=== PATIENT | female | born 1930 | race Caucasian/White ===

== ENCOUNTER 2018-02-21 08:18 | Observation (INO) ==
[2018-02-21 09:59] LABS: Basophils # 0.1 10*3/uL (0.0-0.2); Basophils % 0.8 % (0.0-0.8); Eosinophils % 0.4 % (0.00-10.9); Hematocrit 39.9 VOL% (35.7-47.0); Hemoglobin 13.4 GM/DL (12.0-16.0); Immature Granulocytes % 0.6 %; Immature Granulocytes Absolute 0.04 #; Lymphocytes # 0.6 10*3/uL (1.4-4.0); Lymphocytes % 7.9 % (21.3-54.2); Mean Corpuscular HGB Conc 33.6 GM/DL (32-36); Mean Corpuscular Hemoglobin 31 PG (27-34); Mean Corpuscular Volume 93.2 FL (87-102); Mean Platelet Volume 10.9 FL (9.6-12.0); Monocytes # 0.8 10*3/uL (0.11-0.8); Monocytes % 11.1 % (1.7-12.7); Neutrophils # 5.6 10*3/uL (1.4-7.4); Neutrophils % 79.2 % (38.7-73.9); Platelet Count 160 T/CUMM (130-400); Red Blood Count 4.28 MC/CUMM (3.8-5.5); Red Cell Distribution Width 13.2 % (9.3-17.3); White Blood Count 7.1 T/CUMM (4-12)
[2018-02-21 10:05] LABS: Amorphous Crystals,Urine Occasional /HPF (Few); Apearance,Urine Slightly Hazy (Clear); Bilirubin,Urine Negative (Negative); Blood, Urine Negative (Negative); Glucose,Urine (UA) Negative (Negative); Ketones,Urine Negative (Negative); Mucus,Urine Occasional /LPF (Occasional); Nitrite,Urine Negative (Negative); Protein,Urine Negative; RBC,Urine 1 /HPF (0-4); Urine Color Yellow (Yellow); Urine Specific Gravity 1.012 (1.001-1.035); Urine Urobilinogen < 2.0 EU/DL (0.2-1.0); WBC,Urine <1 /HPF (0-6)
[2018-02-21 10:08] LABS: PT Patient Result 10.9 SECS; Partial Thromboplastin Time 22.9 SECS (0-40)
[2018-02-21 10:17] LABS: Barbiturates Screen,Urine Negative (Negative); Benzodiazepines Screen,Urine Positive (Negative); Cannabinoid Screen,Urine Negative (Negative); Opiate Screen,Urine Negative (Negative); Phencyclidine Screen,Urine Negative (Negative)
[2018-02-21 10:20] LABS: Alanine Aminotransferase 27 U/L (13-56); Albumin 3.2 G/DL (3.4-5.0); Alkaline Phosphatase 82 U/L (45-117); Aspartate Amino Transferase 26 U/L (0-37); Blood Urea Nitrogen 19 MG/DL (7-18); Calcium 9.8 MG/DL (8.5-10.1); Glucose 99 MG/DL (74-106); Osmolality,Calculated 274.8 MOS/KG (273-304); Potassium 3.7 MMOL/L (3.5-5.1); Sodium 137 MMOL/L (136-145); Total Protein 6.7 G/DL (6.4-8.3); Troponin I Only < 0.015 NG/ML (0.00-0.045)
[2018-02-21 10:42] LABS: Ammonia 33 UMOL/L (11-32)
[2018-02-21] MEDS ORDERED: hydrALAZINE 20 MG/1 ML VIAL IV STA (12:41)
[2018-02-21] MEDS ORDERED: ACETAMINOPHEN 325 MG TABLET PO PRN (13:46)
[2018-02-21] MEDS ORDERED: POLYVINYL ALCOHOL 1.4% OPH SOLN 15 ML BOTTLE BOTH EYES PRN (13:52)
[2018-02-21] MEDS ORDERED: hydrALAZINE 20 MG/1 ML VIAL IV PRN (14:21)
[2018-02-21 17:27] LABS: Troponin I Only < 0.015 NG/ML (0.00-0.045)
[2018-02-21 20:46] LABS: Troponin I Only < 0.015 NG/ML (0.00-0.045)
[2018-02-21] MEDS: CLORAZEPATE 3.75 MG TABLET PO SCH (21:35)
[2018-02-21] MEDS: CARBIDOPA/LEVODOPA 25-100 MG TABLET PO SCH (21:35)
[2018-02-21] MEDS: METOPROLOL SUCCINATE XL 50 MG TABLET PO SCH (21:35)
[2018-02-22 07:17] LABS: Basophils # 0.1 10*3/uL (0.0-0.2); Basophils % 0.6 % (0.0-0.8); Eosinophils % 0.3 % (0.00-10.9); Hematocrit 39.7 VOL% (35.7-47.0); Hemoglobin 13.2 GM/DL (12.0-16.0); Immature Granulocytes % 0.6 %; Immature Granulocytes Absolute 0.06 #; Lymphocytes # 0.9 10*3/uL (1.4-4.0); Lymphocytes % 8.6 % (21.3-54.2); Mean Corpuscular HGB Conc 33.2 GM/DL (32-36); Mean Corpuscular Hemoglobin 31 PG (27-34); Mean Corpuscular Volume 93.4 FL (87-102); Mean Platelet Volume 10.9 FL (9.6-12.0); Monocytes % 9.8 % (1.7-12.7); Neutrophils # 8.2 10*3/uL (1.4-7.4); Neutrophils % 80.1 % (38.7-73.9); Platelet Count 173 T/CUMM (130-400); Red Blood Count 4.25 MC/CUMM (3.8-5.5); Red Cell Distribution Width 13.6 % (9.3-17.3); White Blood Count 10.2 T/CUMM (4-12)
[2018-02-22 07:46] LABS: Calcium 9.2 MG/DL (8.5-10.1); Osmolality,Calculated 281.5 MOS/KG (273-304); Potassium 3.8 MMOL/L (3.5-5.1)
[2018-02-22] MEDS ORDERED: LOSARTAN/HCTZ 50-12.5 MG TABLET PO SCH (09:00)
[2018-02-22] MEDS: PANTOPRAZOLE 40 MG TABLET PO SCH (10:59)
[2018-02-22] MEDS: METOPROLOL SUCCINATE XL 50 MG TABLET PO SCH ×2 (10:59→21:44)
[2018-02-22] MEDS: ASPIRIN EC 81 MG TABLET PO SCH (10:59)
[2018-02-22] MEDS: PARoxetine 20 MG TABLET PO SCH (10:59)
[2018-02-22] MEDS: CARBIDOPA/LEVODOPA 25-100 MG TABLET PO SCH ×2 (11:00→21:44)
[2018-02-22] MEDS: POLYETHYLENE GLYCOL POWDER 17 GM PACK PO SCH (15:47)
[2018-02-22] MEDS: CLORAZEPATE 3.75 MG TABLET PO SCH (21:44)
[2018-02-22] MEDS: APIXABAN 2.5 MG TABLET PO SCH (21:44)
[2018-02-23 06:35] LABS: Basophils % 0.5 % (0.0-0.8); Eosinophils # 0.1 10*3/uL (0.0-0.87); Eosinophils % 0.7 % (0.00-10.9); Hematocrit 37.9 VOL% (35.7-47.0); Hemoglobin 12.6 GM/DL (12.0-16.0); Immature Granulocytes % 0.6 %; Immature Granulocytes Absolute 0.05 #; Lymphocytes # 1.1 10*3/uL (1.4-4.0); Mean Corpuscular HGB Conc 33.2 GM/DL (32-36); Mean Corpuscular Hemoglobin 31 PG (27-34); Mean Corpuscular Volume 94.3 FL (87-102); Mean Platelet Volume 11.8 FL (9.6-12.0); Monocytes # 0.7 10*3/uL (0.11-0.8); Monocytes % 7.8 % (1.7-12.7); Neutrophils # 6.8 10*3/uL (1.4-7.4); Neutrophils % 77.4 % (38.7-73.9); Platelet Count 161 T/CUMM (130-400); Red Blood Count 4.02 MC/CUMM (3.8-5.5); Red Cell Distribution Width 13.5 % (9.3-17.3); White Blood Count 8.7 T/CUMM (4-12)
[2018-02-23 07:07] LABS: Calcium 8.8 MG/DL (8.5-10.1); Osmolality,Calculated 286.4 MOS/KG (273-304); Potassium 3.7 MMOL/L (3.5-5.1)
[2018-02-23] MEDS: PARoxetine 20 MG TABLET PO SCH (09:52)
[2018-02-23] MEDS: PANTOPRAZOLE 40 MG TABLET PO SCH (09:52)
[2018-02-23] MEDS: METOPROLOL SUCCINATE XL 50 MG TABLET PO SCH ×2 (09:52→20:28)
[2018-02-23] MEDS: CARBIDOPA/LEVODOPA 25-100 MG TABLET PO SCH ×2 (09:52→20:28)
[2018-02-23] MEDS: APIXABAN 2.5 MG TABLET PO SCH ×2 (09:52→20:28)
[2018-02-23] MEDS: ASPIRIN EC 81 MG TABLET PO SCH (09:52)
[2018-02-23] MEDS: POLYETHYLENE GLYCOL POWDER 17 GM PACK PO SCH (09:53)
[2018-02-23] MEDS: CLORAZEPATE 3.75 MG TABLET PO SCH (20:28)
[2018-02-24 05:57] LABS: Basophils # 0.1 10*3/uL (0.0-0.2); Eosinophils # 0.1 10*3/uL (0.0-0.87); Eosinophils % 0.7 % (0.00-10.9); Hematocrit 37.2 VOL% (35.7-47.0); Hemoglobin 11.7 GM/DL (12.0-16.0); Immature Granulocytes % 0.8 %; Immature Granulocytes Absolute 0.06 #; Lymphocytes # 1.1 10*3/uL (1.4-4.0); Lymphocytes % 14.6 % (21.3-54.2); Mean Corpuscular HGB Conc 31.5 GM/DL (32-36); Mean Corpuscular Hemoglobin 31 PG (27-34); Mean Corpuscular Volume 98.2 FL (87-102); Mean Platelet Volume 11.8 FL (9.6-12.0); Monocytes # 0.7 10*3/uL (0.11-0.8); Monocytes % 9.8 % (1.7-12.7); Neutrophils # 5.4 10*3/uL (1.4-7.4); Neutrophils % 73.1 % (38.7-73.9); Platelet Count 168 T/CUMM (130-400); Red Blood Count 3.79 MC/CUMM (3.8-5.5); Red Cell Distribution Width 13.5 % (9.3-17.3); White Blood Count 7.3 T/CUMM (4-12)
[2018-02-24 06:37] LABS: Calcium 8.9 MG/DL (8.5-10.1); Potassium 4.1 MMOL/L (3.5-5.1)
[2018-02-24] MEDS: CARBIDOPA/LEVODOPA 25-100 MG TABLET PO SCH (09:18)
[2018-02-24] MEDS: APIXABAN 2.5 MG TABLET PO SCH (09:18)
[2018-02-24] MEDS: ASPIRIN EC 81 MG TABLET PO SCH (09:19)
[2018-02-24] MEDS: PARoxetine 20 MG TABLET PO SCH (09:19)
[2018-02-24] MEDS: PANTOPRAZOLE 40 MG TABLET PO SCH (09:19)
[2018-02-24] MEDS: METOPROLOL SUCCINATE XL 50 MG TABLET PO SCH (09:19)
[2018-02-24] MEDS: POLYETHYLENE GLYCOL POWDER 17 GM PACK PO SCH (09:19)
[2018-02-24 12:00] VITALS: BP 146/58
[2018-02-24] MEDS ORDERED: TUBERCULIN SKIN TEST 0.1 ML SYRINGE INTRADERM ONE (13:00)
== END 2018-02-24 14:30 ==
LOC: EDBD → EDUNIT# → N.ED 08:18 → INTOOBSV 11:35 → N.EDINP 11:35 → N.2E 15:34
PROVIDERS: ADMIT Internal Medicine; ATTEND Internal Medicine

== ENCOUNTER 2019-12-24 13:24 | Inpatient (IN) ==
[2019-12-24] MEDS ORDERED: DILTIAZEM 50 MG/10 ML VIAL IV STA (13:53)
[2019-12-24] MEDS ORDERED: dilTIAZem Drip 125 MG/125 ML PREMIX IV ONE (13:58)
[2019-12-24] MEDS ORDERED: DILTIAZEM INJ 100 MG in SODIUM CHLORIDE 0.9% 100 ML IV SCH (14:00)
[2019-12-24 14:08] LABS: Apearance,Urine CLEAR (Clear); Bacteria,Urine Occasional /HPF (Few); Bilirubin,Urine Negative (Negative); Blood, Urine Negative (Negative); Glucose,Urine (UA) Negative (Negative); Ketones,Urine Negative (Negative); Mucus,Urine Occasional /LPF (Occasional); Nitrite,Urine Negative (Negative); Protein,Urine Negative; Squamous Epithelial Cell,Urine Occasional /HPF (0-10); Urine Color Yellow (Yellow); Urine Specific Gravity 1.015 (1.001-1.035); Urine Urobilinogen < 2.0 EU/DL (0.2-1.0)
[2019-12-24] MEDS ORDERED: SODIUM CHLORIDE 0.9% 250 ML IV STA (14:19)
[2019-12-24] MEDS ORDERED: DILTIAZEM IV SCH (14:30)
[2019-12-24] MEDS ORDERED: dilTIAZem Drip 125 MG/125 ML PREMIX IV SCH ×2 (14:30→18:00)
[2019-12-24 14:49] LABS: Partial Thromboplastin Time 24.7 SECS (20.8-36.0)
[2019-12-24 14:53] LABS: Albumin 4.2 G/DL (3.4-5.0); Bilirubin,Total 0.9 MG/DL (0.2-1.0); Calcium 10.2 MG/DL (8.5-10.1); Osmolality,Calculated 273.8 MOS/KG (273-304); Total Protein 7.9 G/DL (6.4-8.3)
[2019-12-24 14:57] LABS: Basophils # 0.1 10*3/uL (0.0-0.2); Basophils % 0.8 % (0.0-0.8); Eosinophils # 0.1 10*3/uL (0.0-0.87); Eosinophils % 1.7 % (0.00-10.9); Hematocrit 44.6 VOL% (35.7-47.0); Hemoglobin 13.2 GM/DL (12.0-16.0); Immature Granulocytes % 0.5 %; Immature Granulocytes Absolute 0.03 #; Lymphocytes # 0.9 10*3/uL (1.4-4.0); Lymphocytes % 15.1 % (21.3-54.2); Mean Corpuscular HGB Conc 29.6 GM/DL (32-36); Mean Corpuscular Volume 86.9 FL (87-102); Mean Platelet Volume 11.9 FL (9.6-12.0); Monocytes % 8.6 % (1.7-12.7); Neutrophils % 73.3 % (38.7-73.9); Platelet Count 193 T/CUMM (130-400); Red Blood Count 5.13 MC/CUMM (3.8-5.5); Red Cell Distribution Width 15.9 % (9.3-17.3); White Blood Count 5.9 T/CUMM (4-12)
[2019-12-24] MEDS ORDERED: LABETALOL 20 MG/4 ML SYRINGE IV PRN (17:32)
[2019-12-24 18:12] LABS: Barbiturates Screen,Urine Negative (Negative); Benzodiazepines Screen,Urine Negative (Negative); Cannabinoid Screen,Urine Negative (Negative); Opiate Screen,Urine Negative (Negative); Phencyclidine Screen,Urine Negative (Negative)
[2019-12-24] MEDS: METOPROLOL SUCCINATE XL 50 MG TABLET PO SCH (20:31)
[2019-12-24] MEDS: APIXABAN 5 MG TABLET PO SCH (20:31)
[2019-12-24] MEDS: ATORVASTATIN 80 MG TABLET PO SCH (20:31)
[2019-12-24] MEDS: SODIUM CHLORIDE 0.9% 1,000 ML IV SCH (20:32)
[2019-12-25 04:57] LABS: Basophils # 0.1 10*3/uL (0.0-0.2); Basophils % 0.6 % (0.0-0.8); Eosinophils # 0.1 10*3/uL (0.0-0.87); Eosinophils % 0.6 % (0.00-10.9); Hematocrit 40.9 VOL% (35.7-47.0); Hemoglobin 12.3 GM/DL (12.0-16.0); Immature Granulocytes % 0.4 %; Immature Granulocytes Absolute 0.03 #; Lymphocytes # 0.8 10*3/uL (1.4-4.0); Mean Corpuscular HGB Conc 30.1 GM/DL (32-36); Mean Corpuscular Volume 85.7 FL (87-102); Mean Platelet Volume 11.8 FL (9.6-12.0); Monocytes % 11.7 % (1.7-12.7); Neutrophils % 76.7 % (38.7-73.9); Platelet Count 193 T/CUMM (130-400); Red Blood Count 4.77 MC/CUMM (3.8-5.5); Red Cell Distribution Width 16.4 % (9.3-17.3); White Blood Count 7.8 T/CUMM (4-12)
[2019-12-25 05:48] LABS: Risk Ratio 2.84; VLDL CHOLESTEROL 10.2 MG/DL
[2019-12-25] MEDS: ISOSORBIDE MONONITRATE 30 MG TABLET PO SCH (08:51)
[2019-12-25] MEDS: METOPROLOL SUCCINATE XL 50 MG TABLET PO SCH ×2 (08:52→21:30)
[2019-12-25] MEDS: APIXABAN 5 MG TABLET PO SCH ×2 (08:53→21:30)
[2019-12-25] MEDS: SODIUM CHLORIDE 0.9% 1,000 ML IV SCH (10:21)
[2019-12-25] MEDS ORDERED: hydrALAZINE 20 MG/1 ML VIAL IV ONE (14:00)
[2019-12-25] MEDS: LORazepam 2 MG/1 ML VIAL IV PRN (14:10)
[2019-12-25] MEDS ORDERED: hydrALAZINE 20 MG/1 ML VIAL IV PRN (15:44)
[2019-12-25] MEDS ORDERED: OLANZapine 10 MG VIAL IM PRN (17:04)
[2019-12-25] MEDS ORDERED: OLANZapine 2.5 MG TABLET PO PRN (17:16)
[2019-12-25] MEDS: DONEPEZIL 5 MG TABLET PO SCH (17:18)
[2019-12-25] MEDS: amLODIPine 10 MG TABLET PO SCH (17:18)
[2019-12-25 17:33] LABS: Calcium 9.8 MG/DL (8.5-10.1); Osmolality,Calculated 276.7 MOS/KG (273-304)
[2019-12-25] MEDS: ATORVASTATIN 80 MG TABLET PO SCH (21:31)
[2019-12-25] MEDS: QUEtiapine 25 MG TABLET PO SCH (21:31)
[2019-12-26] MEDS: LORazepam 2 MG/1 ML VIAL IV PRN (01:52)
[2019-12-26 05:35] LABS: Basophils % 0.2 % (0.0-0.8); Eosinophils % 0.1 % (0.00-10.9); Immature Granulocytes % 0.7 %; Immature Granulocytes Absolute 0.06 #; Lymphocytes # 0.4 10*3/uL (1.4-4.0); Lymphocytes % 4.5 % (21.3-54.2); Mean Corpuscular HGB Conc 28.9 GM/DL (32-36); Mean Corpuscular Volume 88.8 FL (87-102); Mean Platelet Volume 12.2 FL (9.6-12.0); Monocytes % 11.2 % (1.7-12.7); Neutrophils % 83.3 % (38.7-73.9); Platelet Count 158 T/CUMM (130-400); Red Blood Count 4.28 MC/CUMM (3.8-5.5); Red Cell Distribution Width 16.4 % (9.3-17.3)
[2019-12-26 05:56] LABS: Calcium 9.2 MG/DL (8.5-10.1); Osmolality,Calculated 279.4 MOS/KG (273-304)
[2019-12-26 06:10] LABS: Lymphocytes 5 % (20-55); Segmented Neutrophils 84 % (50-85); Total Cells Counted 100
[2019-12-26 06:11] LABS: Hypochromasia 1+; Ovalocytes Slight; Platelet Estimate Normal
[2019-12-26] MEDS: METOPROLOL SUCCINATE XL 50 MG TABLET PO SCH ×2 (11:11→20:12)
[2019-12-26] MEDS: ISOSORBIDE MONONITRATE 30 MG TABLET PO SCH (11:11)
[2019-12-26] MEDS: DONEPEZIL 5 MG TABLET PO SCH (11:15)
[2019-12-26] MEDS: amLODIPine 10 MG TABLET PO SCH (11:16)
[2019-12-26] MEDS: QUEtiapine 25 MG TABLET PO SCH ×2 (11:16→20:12)
[2019-12-26] MEDS: APIXABAN 5 MG TABLET PO SCH ×2 (11:16→20:12)
[2019-12-26] MEDS: ATORVASTATIN 80 MG TABLET PO SCH (20:12)
[2019-12-27 06:00] LABS: Basophils # 0.1 10*3/uL (0.0-0.2); Basophils % 1.3 % (0.0-0.8); Eosinophils # 0.3 10*3/uL (0.0-0.87); Eosinophils % 4.8 % (0.00-10.9); Hematocrit 36.3 VOL% (35.7-47.0); Hemoglobin 10.8 GM/DL (12.0-16.0); Immature Granulocytes % 0.5 %; Immature Granulocytes Absolute 0.03 #; Lymphocytes # 0.6 10*3/uL (1.4-4.0); Lymphocytes % 9.9 % (21.3-54.2); Mean Corpuscular HGB Conc 29.8 GM/DL (32-36); Mean Corpuscular Volume 87.5 FL (87-102); Mean Platelet Volume 12.1 FL (9.6-12.0); Monocytes % 13.3 % (1.7-12.7); Neutrophils % 70.2 % (38.7-73.9); Platelet Count 157 T/CUMM (130-400); Red Blood Count 4.15 MC/CUMM (3.8-5.5); Red Cell Distribution Width 16.4 % (9.3-17.3); White Blood Count 6.1 T/CUMM (4-12)
[2019-12-27 06:03] LABS: Calcium 9.5 MG/DL (8.5-10.1); Osmolality,Calculated 276.7 MOS/KG (273-304)
[2019-12-27 06:05] LABS: Hypochromasia 1+; Platelet Estimate Adequate
[2019-12-27] MEDS: DONEPEZIL 5 MG TABLET PO SCH (08:56)
[2019-12-27] MEDS: ISOSORBIDE MONONITRATE 30 MG TABLET PO SCH (08:56)
[2019-12-27] MEDS: APIXABAN 5 MG TABLET PO SCH ×2 (08:56→21:14)
[2019-12-27] MEDS: amLODIPine 10 MG TABLET PO SCH (08:56)
[2019-12-27] MEDS: METOPROLOL SUCCINATE XL 50 MG TABLET PO SCH ×2 (08:56→21:14)
[2019-12-27] MEDS: QUEtiapine 25 MG TABLET PO SCH ×2 (08:56→21:14)
[2019-12-27] MEDS: ATORVASTATIN 80 MG TABLET PO SCH (21:14)
[2019-12-28 06:23] LABS: Calcium 9.5 MG/DL (8.5-10.1); Osmolality,Calculated 281.5 MOS/KG (273-304)
[2019-12-28 06:30] LABS: Basophils # 0.1 10*3/uL (0.0-0.2); Basophils % 1.3 % (0.0-0.8); Eosinophils # 0.2 10*3/uL (0.0-0.87); Eosinophils % 4.2 % (0.00-10.9); Hematocrit 36.5 VOL% (35.7-47.0); Hemoglobin 10.5 GM/DL (12.0-16.0); Immature Granulocytes % 0.5 %; Immature Granulocytes Absolute 0.03 #; Lymphocytes # 0.9 10*3/uL (1.4-4.0); Lymphocytes % 16.6 % (21.3-54.2); Mean Corpuscular HGB Conc 28.8 GM/DL (32-36); Monocytes % 14.8 % (1.7-12.7); Neutrophils % 62.6 % (38.7-73.9); Platelet Count 176 T/CUMM (130-400); Red Blood Count 4.15 MC/CUMM (3.8-5.5); Red Cell Distribution Width 16.4 % (9.3-17.3); White Blood Count 5.5 T/CUMM (4-12)
[2019-12-28 06:40] LABS: Hypochromasia 1+; Microcytosis 1+; Ovalocytes Slight
[2019-12-28 06:41] LABS: Platelet Estimate Adequate
[2019-12-28] MEDS: DONEPEZIL 5 MG TABLET PO SCH (08:46)
[2019-12-28] MEDS: amLODIPine 10 MG TABLET PO SCH (08:46)
[2019-12-28] MEDS: ISOSORBIDE MONONITRATE 30 MG TABLET PO SCH (08:46)
[2019-12-28] MEDS: QUEtiapine 25 MG TABLET PO SCH ×2 (08:46→21:52)
[2019-12-28] MEDS: METOPROLOL SUCCINATE XL 50 MG TABLET PO SCH ×2 (08:46→21:52)
[2019-12-28] MEDS: APIXABAN 5 MG TABLET PO SCH ×2 (08:49→21:52)
[2019-12-28] MEDS: ATORVASTATIN 80 MG TABLET PO SCH (21:52)
[2019-12-29 05:55] LABS: Calcium 9.5 MG/DL (8.5-10.1); Osmolality,Calculated 280.4 MOS/KG (273-304)
[2019-12-29 06:05] LABS: Basophils # 0.1 10*3/uL (0.0-0.2); Eosinophils # 0.2 10*3/uL (0.0-0.87); Eosinophils % 4.2 % (0.00-10.9); Hematocrit 36.2 VOL% (35.7-47.0); Immature Granulocytes % 0.4 %; Immature Granulocytes Absolute 0.02 #; Lymphocytes # 0.8 10*3/uL (1.4-4.0); Lymphocytes % 15.8 % (21.3-54.2); Mean Corpuscular HGB Conc 28.7 GM/DL (32-36); Mean Corpuscular Volume 88.3 FL (87-102); Monocytes % 15.8 % (1.7-12.7); Neutrophils % 62.8 % (38.7-73.9); Platelet Count 173 T/CUMM (130-400); Red Cell Distribution Width 16.4 % (9.3-17.3)
[2019-12-29 06:06] LABS: Hemoglobin 10.4 GM/DL (12.0-16.0)
[2019-12-29 06:23] LABS: Band Neutrophils 3 % (0-10); Eosinophils 5 % (0-10); Lymphocytes 14 % (20-55); Segmented Neutrophils 59 % (50-85); Total Cells Counted 100
[2019-12-29 06:24] LABS: Anisocytosis 1+; Ovalocytes 1+; Platelet Estimate Normal
[2019-12-29] MEDS: APIXABAN 5 MG TABLET PO SCH ×2 (09:33→21:01)
[2019-12-29] MEDS: METOPROLOL SUCCINATE XL 50 MG TABLET PO SCH ×2 (09:33→21:01)
[2019-12-29] MEDS: DONEPEZIL 5 MG TABLET PO SCH (09:33)
[2019-12-29] MEDS: QUEtiapine 25 MG TABLET PO SCH (09:33)
[2019-12-29] MEDS: amLODIPine 10 MG TABLET PO SCH (09:33)
[2019-12-29] MEDS: ISOSORBIDE MONONITRATE 30 MG TABLET PO SCH (09:34)
[2019-12-29] MEDS: ATORVASTATIN 80 MG TABLET PO SCH (21:01)
[2019-12-30] MEDS ORDERED: QUEtiapine 25 MG TABLET PO SCH (09:00)
[2019-12-30] MEDS: ISOSORBIDE MONONITRATE 30 MG TABLET PO SCH (09:33)
[2019-12-30] MEDS: APIXABAN 5 MG TABLET PO SCH ×2 (09:33→20:37)
[2019-12-30] MEDS: DONEPEZIL 5 MG TABLET PO SCH (09:33)
[2019-12-30] MEDS: METOPROLOL SUCCINATE XL 50 MG TABLET PO SCH ×2 (09:33→20:37)
[2019-12-30] MEDS: amLODIPine 10 MG TABLET PO SCH (09:33)
[2019-12-30] MEDS: ATORVASTATIN 80 MG TABLET PO SCH (20:37)
[2019-12-30] MEDS: QUEtiapine 25 MG TABLET PO SCH (20:37)
[2019-12-31] MEDS: APIXABAN 5 MG TABLET PO SCH ×2 (09:38→21:13)
[2019-12-31] MEDS: ISOSORBIDE MONONITRATE 30 MG TABLET PO SCH (09:38)
[2019-12-31] MEDS: METOPROLOL SUCCINATE XL 50 MG TABLET PO SCH ×2 (09:38→21:13)
[2019-12-31] MEDS: amLODIPine 10 MG TABLET PO SCH (09:38)
[2019-12-31] MEDS: DONEPEZIL 5 MG TABLET PO SCH (09:38)
[2019-12-31] MEDS ORDERED: TUBERCULIN SKIN TEST 0.1 ML SYRINGE INTRADERM ONE (15:01)
[2019-12-31] MEDS: ATORVASTATIN 80 MG TABLET PO SCH (21:13)
[2019-12-31] MEDS: QUEtiapine 25 MG TABLET PO SCH (21:13)
[2020-01-01] MEDS: APIXABAN 5 MG TABLET PO SCH ×2 (09:28→20:27)
[2020-01-01] MEDS: amLODIPine 10 MG TABLET PO SCH (09:28)
[2020-01-01] MEDS: ISOSORBIDE MONONITRATE 30 MG TABLET PO SCH (09:28)
[2020-01-01] MEDS: DONEPEZIL 5 MG TABLET PO SCH (09:29)
[2020-01-01] MEDS: METOPROLOL SUCCINATE XL 50 MG TABLET PO SCH ×2 (09:31→20:28)
[2020-01-01] MEDS: QUEtiapine 25 MG TABLET PO SCH (20:28)
[2020-01-01] MEDS: ATORVASTATIN 80 MG TABLET PO SCH (20:28)
[2020-01-02] MEDS: ISOSORBIDE MONONITRATE 30 MG TABLET PO SCH (10:14)
[2020-01-02] MEDS: APIXABAN 5 MG TABLET PO SCH (10:14)
[2020-01-02] MEDS: METOPROLOL SUCCINATE XL 50 MG TABLET PO SCH (10:14)
[2020-01-02] MEDS: DONEPEZIL 5 MG TABLET PO SCH (10:15)
[2020-01-02] MEDS: amLODIPine 10 MG TABLET PO SCH (10:15)
[2020-01-02 12:08] VITALS: BP 134/61
== END 2020-01-02 14:15 | disposition home health service (06) | DRG 884 ==
LOC: EDUNIT# → EDBD → N.ED 13:24 → N.EDINP 16:36 → SUATTDRO 16:36 → N.CC 17:31 → N.3E 12-27 17:11
PROVIDERS: ADMIT Emergency Medicine; ATTEND Internal Medicine